=== PATIENT | female | born 1980 | race Caucasian/White ===

== ENCOUNTER 2016-12-16 09:26 | Observation (INO) | payer OTHER ==
[~2016-12-16] VITALS: Ht 180.3 cm; Wt 110.0 kg
[2016-12-16] MEDS ORDERED: LACTATED RINGER'S 1000ML 1,000 ML IV PRN (09:54)
[2016-12-16 10:00] VITALS: Ht 180.3 cm; Wt 110.0 kg
[2016-12-16] MEDS ORDERED: MISOPROSTOLTAB 50 MCG TAB PV ONE (10:00)
[2016-12-16] MEDS ORDERED: MISOPROSTOL 200 MCG TAB ONE ×2 (10:00→21:15)
[2016-12-16 10:15] LABS: HEMATOCRIT 32.5 % (37-47); MEAN CELL VOLUME 81.5 fL (80-100); MEAN CORPUSCULAR HEMOGLOBIN 27.6 pg (25-34); MEAN CORPUSCULAR HGB CONC 33.8 g/dl (32-36); MEAN PLATELET VOLUME 10.2 fL (7.4-10.4); PLATELET COUNT 222 K/uL (130-400); RED BLOOD COUNT 3.99 M/uL (4.2-5.4); WHITE BLOOD COUNT 6.96 K/uL (4.8-10.8)
[2016-12-16] MEDS: LACTATED RINGER'S 1000ML 1,000 ML IV SCH ×2 (10:20→21:57)
[2016-12-16] MEDS ORDERED: IV FLUIDS COMPLETED PRN (10:45)
[2016-12-16] MEDS ORDERED: PRENTAB26 PO (13:50)
[2016-12-16] MEDS ORDERED: VNTHFA/IN INH (13:50)
[2016-12-16] MEDS ORDERED: MISOPROSTOL 200 MCG TAB PO ONE (15:30)
[2016-12-16] MEDS ORDERED: LACTATED RINGER'S 1000ML 1,000 ML IV SCH (16:00)
[2016-12-16] MEDS ORDERED: MISOPROSTOL 200 MCG TAB PO SCH (21:15)
[2016-12-16] MEDS ORDERED: FENTANYL 2MCG/ML ROPIV 1.25MG/ML 100ML BAG EPI ONE (23:16)
[2016-12-16] MEDS ORDERED: EpHEDrine SULFATE INJ 50 MG/ML AMP ONE (23:16)
[2016-12-16] MEDS ORDERED: BUPIVACAINE 0.25% 30 ML VIAL ONE (23:16)
[2016-12-16] MEDS ORDERED: FENTANYL CITRATE INJ 50 MCG/1 ML 2 ML VIAL ONE (23:16)
[2016-12-17] MEDS ORDERED: LACTATED RINGER'S 1000ML 500 ML IV PRN (00:17)
[2016-12-17] MEDS ORDERED: NALOXONE HCL INJ 1 MG in SODIUM CHLORIDE 0.9% 1000ML 1,000 ML IV PRN (00:17)
[2016-12-17] MEDS ORDERED: ONDANSETRON INJ 2 MG/ML 2 ML VIAL IV PRN (00:30)
[2016-12-17] MEDS ORDERED: FENTANYL 2MCG/ML ROPIV 1.25MG/ML 100ML BAG EPI PRN (00:30)
[2016-12-17] MEDS ORDERED: NALBUPHINE HCL INJ 10 MG/ML AMP IV PRN (00:30)
[2016-12-17] MEDS ORDERED: EpHEDrine SULFATE INJ 50 MG/ML AMP IV PRN (00:30)
[2016-12-17] MEDS ORDERED: DiphenhydrAMINE HCL 50 MG/ML VIAL IV PRN (00:30)
[2016-12-17] MEDS ORDERED: NALOXONE HCL INJ 0.4 MG/1 ML VIAL/CARP IV PRN (00:30)
[2016-12-17] MEDS: LACTATED RINGER'S 1000ML 1,000 ML IV SCH (00:41)
[2016-12-17] MEDS ORDERED: OXYTOCIN 30 UNITS/500ML NSS IV ONE (03:21)
--- NOTE | 2016-12-17 03:41 | Discharge Instructions ---
Discharge Instructions Admission Reason for Admission: 24 Week Demise Discharge Discharge Diagnosis / Problem: demise Discharge Goals Goal(s): Improve function Activity Recommendations Activity Limitations: per Instructions/Follow-up section . Instructions / Follow-Up Instructions / Follow-Up . ACTIVITY RECOMMENDATIONS: * Vaginal rest (no tampons, douching, intercourse) until after doctor 's visit. * control as discussed with doctor. * Wear a bra for 24 hours/day for comfort. SPECIAL CARE INSTRUCTIONS: Medications: * vitamins, one tablet daily. Continue taking until prescription is complete. Call you doctor if: * Temperature greater than or equal to 100.4 degrees F or 38.0 degrees C. * Bleeding becomes heavier than the heaviest part of your period - saturating a sanitary pad within an hour. * Passing large clots. * Unrelieved pain. * Bleeding has a foul smelling odor. * Signs and symptoms of phlebitis: leg pain, warm, red or swollen area on leg. incision has increased pain, redness, swelling, presence of any drainage, or if the incision starts to open up. FOLLOW UP VISIT: If appointment is not already scheduled: Please call doctor's office to schedule a follow-up appointment. Current Hospital Diet Patient's current hospital diet: Clear Liquid Diet, Regular OB Diet Discahrge Diet Recommended Diet: Regular Diet Pending Studies Studies pending at discharge: no Medical Emergencies . Who to Call and When: Medical Emergencies: If at any time you feel your situation is an emergency, please call 911 immediately. . Non-Emergent Contact Non-Emergency issues call your: Primary Care Provider . . "Provider Documentation" section prepared by Miguel Cheng. VTE Core Measure Inpt VTE Proph given/why not?: Treatment not indicated
[2016-12-17] MEDS ORDERED: HYDROCORTISONE ACETATE 25 MG SUPP PR PRN (03:45)
[2016-12-17] MEDS ORDERED: IBUPROFEN 600 MG TAB PO PRN (03:45)
[2016-12-17] MEDS ORDERED: OXYCODONE/ACETAMINOPHEN 5-325 TAB PO PRN (03:45)
[2016-12-17] MEDS ORDERED: ACETAMINOPHEN 325 MG TAB PO PRN (03:45)
[2016-12-17] MEDS ORDERED: SUPERCREAM 0.870 % 15GM JAR EXT PRN (03:45)
[2016-12-17] MEDS ORDERED: LANOLIN OINT EXT PRN ×2 (03:45)
[2016-12-17] MEDS ORDERED: BENZOCAINE 20% AER SPR 82.5 GM CAN EXT PRN (03:45)
[2016-12-17] MEDS ORDERED: OXYTOCIN 30 UNITS/500ML NSS IV PRN (03:45)
--- NOTE | 2016-12-17 07:05 | DELIVERY SUMMARY ---
DATE OF OPERATION: 12/16/2016 Rosa presented to labor and delivery on December 16 for induction of labor at 24 weeks since she had a demise. She received 3 total doses of Cytotec and an epidural and just after 3 in the morning, she presented with the baby delivering, membranes intact, breech position in the vagina. Baby was delivered by rupture of membranes and then delivering the baby. Cord was clamped and cut and then placenta was manually removed. I was able to grasp this as it was in the cervix, using manual removal and an empty sponge stick. I felt all the placenta had been removed, IV Pitocin was started, the bleeding was minimal and there was no tearing noted. Sponge and instrument counts were correct. Estimated blood loss was 100 mL. Gross impression of the fetus was that it was macerated. There were no obvious abnormalities. There was a nuchal cord x4 noted. The patient was informed. I attest to the content of the Intraoperative Record and any orders documented therein. Any exceptio ns are noted below.
--- NOTE | 2016-12-17 07:31 | Anesthesia Procedure Note ---
Anesthesia Epidural Removal Nt Date & Time Dec 17, 2016 at 07:30 Vital Signs Pain Intensity: 0.0 Notes Mental Status: alert / awake / arousable, participated in evaluation Nausea / Vomiting: adequately controlled Pain: adequately controlled Airway Patency, RR, SpO2: stable & adequate BP & HR: stable & adequate Hydration State: stable & adequate Neuraxial Anesthesia: was administered, sensory block is resolved Anesthetic Complications: no major complications apparent, pt satisfied with anesthetic care Epidural: removed without complications, with tip intact
[2016-12-17] MEDS ORDERED: DOCUSATE SODIUM 100 MG CAP PO SCH (08:00)
[2016-12-17] MEDS ORDERED: BISACODYL 5 MG TABEC PO SCH (20:00)
[2016-12-18] MEDS ORDERED: BISACODYL 10 MG SUPP PR PRN (07:00)
== END 2016-12-17 13:15 | disposition home or self-care (01) ==
LOC: OBSVTOIN 09:26 → C.LD 09:26 → INTOOBSV 09:26
PROVIDERS: ADMIT Obstetrics & Gynecology; ATTEND Obstetrics & Gynecology
DX: O36.4XX0 Maternal care for intrauterine death, not applicable or unspecified (principal); Z3A.24 24 weeks gestation of pregnancy

== ENCOUNTER 2018-06-15 00:22 | Emergency (ER) | payer SELFPAY ==
[~2018-06-15] VITALS: Ht 181.6 cm; Wt 102.2 kg
[~2018-06-15 00:22] MED LIST: PRENTAB26 PO; VNTHFA/IN INH
[2018-06-15 00:26] VITALS: TEMP 36.7; Ht 181.6 cm; Wt 102.2 kg
[2018-06-15] MEDS ORDERED: SODIUM CHLORIDE 0.9% 1000ML 1,000 ML IV STA (00:31)
[2018-06-15 00:58] VITALS: O2SAT 98
[2018-06-15 00:58] LABS: BASO % 0.2 %; BASO ABS # 0.02 K/uL (0-0.2); EOS % 0.8 %; EOS ABS # 0.08 K/uL (0-0.5); HEMATOCRIT 34.8 % (37-47); HEMOGLOBIN 10.8 g/dL (12.0-16.0); IG# 0.03 K/uL (0.00-0.02); LYMPH % 31.8 %; LYMPH ABS # 3.05 K/uL (1.2-3.4); MEAN CELL VOLUME 79.5 fL (80-100); MEAN CORPUSCULAR HEMOGLOBIN 24.7 pg (25-34); MEAN PLATELET VOLUME 10.8 fL (7.4-10.4); MONO % 7.2 %; MONO ABS # 0.69 K/uL (0.11-0.59); NEUT % 59.7 %; NEUT ABS # 5.71 K/uL (1.4-6.5); PLATELET COUNT 279 K/uL (130-400); RED CELL DISTRIBUTION WIDTH CV 13.3 % (11.5-14.5); RED CELL DISTRIBUTION WIDTH SD 38.5 fL (36.4-46.3); WHITE BLOOD COUNT 9.58 K/uL (4.8-10.8)
[2018-06-15 01:07] LABS: PTT PATIENT 27.1 SECONDS (21.0-31.0)
[2018-06-15 01:30] LABS: ALBUMIN 3.9 gm/dl (3.4-5.0); CALCIUM 8.2 mg/dl (8.5-10.1); CREATININE 1.02 mg/dl (0.60-1.20); POTASSIUM 3.6 mmol/L (3.5-5.1); TOTAL PROTEIN 7.5 gm/dl (6.4-8.2)
--- NOTE | 2018-06-15 03:40 | EMERGENCY ROOM VISIT NOTE ---
History First contact with patient: 00:31 Chief Complaint: VAGINAL BLEEDING Stated Complaint: CRAMPS BLEEDING LOTS OF CLOTS FROM VAGINAL AREA History of Present Illness The patient is a 37 year old female who presents to the Emergency Room with complaints of heavy vaginal bleeding for the past few hours that is now tapering off. It is spontaneous vaginal delivery stillbirth 2 months ago. She [facility]. Patient had 6 total pregnancies and 3 total miscarriages. She has 3 living children. Patient states she has been having intermittent spotting since the miscarriage. Patient states the bleeding got much worse tonight. She did have intercourse this week. Patient complains of left lower suprapubic cramping. 4 out of 10. Nothing makes it better or worse. Patient denies chest pain, dyspnea, fever, chills, nausea, vomiting, diarrhea, urinary symptoms, flank pain, back pain, vaginal odor. Review of Systems An 10 system review of systems was completed with positives and pertinent negatives listed in the HPI. Past Medical/Surgical History Medical Problems: (1) Asthma (2) demise > 22 weeks, delivered, current hospitalization (3) Missed with demise before 20 completed weeks of gestation Family History No Family History of: Blood clots Social History Smoking Status: Current Every Day Smoker Drug Use: none Marital Status: Housing Status: lives with family Occupation Status: employed Current/Historical Medications Scheduled Albuterol Hfa (Ventolin Hfa), 2-4 PUFFS INH Q6H Physical Exam Vital Signs Date Time Temp Pulse Resp B/P (MAP) Pulse Ox O2 Delivery O2 Flow Rate FiO2 06/15/18 02:55 77 94/78 100 Room Air 06/15/18 02:31 80 16 115/69 100 Room Air 06/15/18 01:55 84 06/15/18 01:53 85 18 110/78 100 Room Air 06/15/18 00:58 98 Room Air 06/15/18 00:26 36.7 89 18 119/73 98 Room Air Physical Exam VITALS: Vitals are noted on the nurse's note and reviewed by myself. Vital signs stable. GENERAL: Pleasant female, in no acute distress, nondiaphoretic, well-developed well-nourished. SKIN: The skin was without rashes, erythema, edema, or bruising. There is no tenting of the skin. Capillary reflex less than 2 seconds. HEAD: Normocephalic atraumatic. EARS: External auditory canals clear, tympanic membranes pearly stephen without erythema or effusion bilaterally. EYES: Pupils equal round and reactive to light and accommodation. Conjunctivae without injection, sclerae without icterus. Extraocular movements intact. NOSE: Patent, turbinates without inflammation or discharge. MOUTH: Mucous membranes moist. Pharynx without erythema or exudate. Uvula midline. Airway patent. Tongue does not deviate. NECK: Supple without nuchal rigidity. No lymphadenopathy. No thyromegaly. Cervical spine is nontender. No JVD. HEART: Regular rate and rhythm without murmurs gallops or rubs. LUNGS: Clear to auscultation bilaterally without wheezes, rales or rhonchi. No retractions or accessory muscle use. ABDOMEN: Positive bowel sounds x 4. Normal tympanic percussion. Soft, nontender, without masses or organomegaly. Zaman sign negative. No guarding or rebound tenderness. No CVA tenderness exam: Normal external female genitalia, minimal blood in the vault, minimal blood coming out of the os. Records Management Director present. MUSCULOSKELETAL: No muscle atrophy, erythema, or edema noted. NEURO: Patient was alert and oriented to person place and time. Normal sensation to light and sharp touch. No focal neurological deficits. Medical Decision & Procedures Laboratory Results 06/15/18 00:46 Red Blood Count 4.38, Mean Corpuscular Volume 79.5, Mean Corpuscular Hemoglobin 24.7, Mean Corpuscular Hemoglobin Concent 31.0, Mean Platelet Volume 10.8, Neutrophils (%) (Auto) 59.7, Lymphocytes (%) (Auto) 31.8, Monocytes (%) (Auto) 7.2, Eosinophils (%) (Auto) 0.8, Basophils (%) (Auto) 0.2, Neutrophils # (Auto) 5.71, Lymphocytes # (Auto) 3.05, Monocytes # (Auto) 0.69, Eosinophils # (Auto) 0.08, Basophils # (Auto) 0.02 06/15/18 00:46 Test 06/15/18 00:46 06/15/18 02:49 White Blood Count 9.58 K/uL (4.8-10.8) Red Blood Count 4.38 M/uL (4.2-5.4) Hemoglobin 10.8 g/dL (12.0-16.0) Hematocrit 34.8 % (37-47) Mean Corpuscular Volume 79.5 fL (80-100) Mean Corpuscular Hemoglobin 24.7 pg (25-34) Mean Corpuscular Hemoglobin Concent 31.0 g/dl (32-36) Platelet Count 279 K/uL (130-400) Mean Platelet Volume 10.8 fL (7.4-10.4) Neutrophils (%) (Auto) 59.7 % Lymphocytes (%) (Auto) 31.8 % Monocytes (%) (Auto) 7.2 % Eosinophils (%) (Auto) 0.8 % Basophils (%) (Auto) 0.2 % Neutrophils # (Auto) 5.71 K/uL (1.4-6.5) Lymphocytes # (Auto) 3.05 K/uL (1.2-3.4) Monocytes # (Auto) 0.69 K/uL (0.11-0.59) Eosinophils # (Auto) 0.08 K/uL (0-0.5) Basophils # (Auto) 0.02 K/uL (0-0.2) RDW Standard Deviation 38.5 fL (36.4-46.3) RDW Coefficient of Variation 13.3 % (11.5-14.5) Immature Granulocyte % (Auto) 0.3 % Immature Granulocyte # (Auto) 0.03 K/uL (0.00-0.02) Prothrombin Time 10.5 SECONDS (9.0-12.0) Prothromb Time International Ratio 1.0 (0.9-1.1) Activated Partial Thromboplast Time 27.1 SECONDS (21.0-31.0) Partial Thromboplastin Ratio 1.0 Anion Gap 7.0 mmol/L (3-11) Est Creatinine Clear Calc Drug Dose 101.2 ml/min Estimated GFR () 82.0 Estimated GFR (Non- 70.7 BUN/Creatinine Ratio 14.3 (10-20) Calcium Level 8.2 mg/dl (8.5-10.1) Total Bilirubin 0.2 mg/dl (0.2-1) Aspartate Amino Transf (AST/SGOT) 8 U/L (15-37) Alanine Aminotransferase (ALT/SGPT) 20 U/L (12-78) Alkaline Phosphatase 73 U/L (45-117) Total Protein 7.5 gm/dl (6.4-8.2) Albumin 3.9 gm/dl (3.4-5.0) Globulin 3.6 gm/dl (2.5-4.0) Albumin/Globulin Ratio 1.1 (0.9-2) Human Chorionic Gonadotropin, Qual NEG (NEG) Urine Color YELLOW Urine Appearance ERROR (CLEAR) Urine pH 6.0 (4.5-7.5) Urine Specific Hartline 1.031 (1.000-1.030) Urine Protein NEG (NEG) Urine Glucose (UA) NEG (NEG) Urine Ketones 1+ (NEG) Urine Occult Blood 3+ (NEG) Urine Nitrite NEG (NEG) Urine Bilirubin NEG (NEG) Urine Urobilinogen NEG (NEG) Urine Leukocyte Esterase NEG (NEG) Urine WBC (Auto) 1-5 /hpf (0-5) Urine RBC (Auto) >30 /hpf (0-4) Urine Hyaline Casts (Auto) 1-5 /lpf (0-5) Urine Epithelial Cells (Auto) >30 /lpf (0-5) Urine Bacteria (Auto) NEG (NEG) Medications Administered Medications (Trade) Dose Ordered Sig/Alesha Route Start Time Stop Time Status Last Admin Dose Admin Sodium Chloride 1,000 ml @ 999 mls/hr Q1H1M STAT IV 06/15/18 00:31 06/15/18 01:31 DC 06/15/18 00:31 999 MLS/HR ED Course Prior records/ancillary studies reviewed. Triage Nursing notes reviewed. The patient's history was concerning for vaginal bleeding and abdominal pain. Differential diagnosis: Etiologies such as ectopic , retained products of conception, dysfunction uterine bleeding, bleeding dyscrasia, trauma, infection, as well as others were entertained. Physical examination: As above. Vitals signs revealed stable. ER treatment provided: IV fluids On reassessment the patient felt better. Diagnostic interpretation by me: Mild anemia, normal coagulation studies, and chemistries Negative test Imaging studies: US PELVIC/ENDOVAG: Findings: Bicornuate appearing uterus with complex collection within endometrial canal and into the descending the right groin. This could represent organizing hematoma however retained products of conception cannot be excluded The uterus measures 10.6 x 6.0 x 7.2 cm Left ovary is not visualized. The right ovary is 3.4 x 1.9 x 4.0 cm. Impression Abnormal appearance to the endometrium suggestive of a organizing hematoma versus retained products of conception in the right horn of what appears to be a bicornuate uterus. Radiologist: Phil Conn MD Consultation: A consultation was placed with the travel trailer components assembler physician, Dr Duarte. The case was discussed and diagnostics were reviewed. She states the patient most likely is on her period and recommend iron supplement with vitamin C and outpatient follow -up. This appears to be consistent with vaginal bleeding most likely from her first menstrual cycle after the miscarriage. Prior surgical notes were reviewed from April. Patient has spontaneous vaginal delivery. Patient was advised to take a iron pill with vitamin C daily and light activity no intercourse until cleared by [facility]. She is advised to follow-up in a few days or here in the ER sooner for abdominal pain, fevers, heavy bleeding, worsening signs or symptoms or as needed. Patient did not have acute abdomen on exam. She had minimal bleeding in the vault. Stable vital signs. By the evaluation outlined above emergent etiologies such as bleeding dyscrasia, ectopic , trauma, as well as others were deemed relatively unlikely. The pt informed about the findings as listed above. All questions were answered and pleased with the treatment. Return instructions were outlined and the patient was discharged in stable condition. Referral: The patient was referred to [facility] for follow-up in 2 to 3 days for a recheck of her current condition. Case reviewed with my attending The chart was completed utilizing [employer] Speech voice recognition software. Grammatical errors, random word insertions, pronoun errors, and incomplete sentences are an occassional consequence of this system due to software limitations, ambient noise, and hardware issues. Any formal questions or concerns about the content, text, or information contained within the body of this dictation should be directly addressed to the physician assistant front desk manager for clarification. Medical Decision As above Medication Reconcilliation Current Medication List: was personally reviewed by me Blood Pressure Screening Patient's blood pressure: Normal blood pressure Impression Primary Impression: Abnormal vaginal bleeding Additional Impression: Anemia Departure Information Dispostion Home / Self-Care Condition GOOD Referrals RV. Davis MD (PCP) Patient Instructions My [facility] Additional Instructions Take an iron pill [id number] every day with vitamin C until cleared by OB/ CLINICAL NURSE MANAGER. Rest. Stay well hydrated. No strenuous activity or intercourse until cleared by [facility]. Zofran 4 tablet every 6 hours as needed for nausea and vomiting. Acetaminophen(Tylenol) may be used for fever or pain. Use 1000mg every six hours as needed. Avoid using more than 3000mg in a 24 hour period. Rest and drink plenty of fluids as tolerated. Continue current medications. Return to the ER immediately for worsening or persistent heavy vaginal bleeding , abdominal pain, vomiting, fevers, chest pains, difficulty breathing, worsening of your condition, or as needed. Follow up with your [facility] in 2-3 days for a recheck of your current condition. Problem Qualifiers
[2018-06-15 03:54] VITALS: BP 100/58; PULSE 80; O2SAT 99
--- NOTE | 2018-06-15 07:06 | DIAGNOSTIC IMAGING REPORT ---
PELVIC ULTRASOUND, TRANSABDOMINAL AND TRANSVAGINAL HISTORY: Vaginal bleed/pain COMPARISON: None. FINDINGS: Uterus: 10.6 x 6.0 x 7.2 cm. There is an arcuate appearance to the uterus. Endometrial stripe: Thickened and heterogeneous most pronounced along the right side of the endometrium near the cornua where there is a focal heterogeneous area measuring 3.8 x 3.0 2.1 cm. This demonstrates color flow. Right ovary: Normal in size and demonstrates normal color flow. Left ovary: Obscured by overlying bowel gas. Miscellaneous:No pelvic free fluid. IMPRESSION: Thickened and heterogeneous most pronounced along the right side of the endometrium near the cornua where there is a focal heterogeneous area measuring 3.8 x 3.0 2.1 cm. This demonstrates color flow. Therefore, this is concerning for retained products of conception. Electronically signed by: Baldemar Langston M.D. 06/15/2018 7:05 AM Dictated Date/Time: 06/15/2018 7:01 AM
== END 2018-06-15 03:54 | disposition home or self-care (01) ==
LOC: C.EDB 00:23 → C.EDA 03:54
DX: N93.9 Abnormal uterine and vaginal bleeding, unspecified (principal); D64.9 Anemia, unspecified; J45.909 Unspecified asthma, uncomplicated; F17.200 Nicotine dependence, unspecified, uncomplicated

== ENCOUNTER 2019-04-23 20:44 | Inpatient (IN) ==
[2019-04-23] MEDS ORDERED: SODIUM CHLORIDE 0.9% 1000ML 1,000 ML IV SCH (21:15)
[2019-04-23] MEDS ORDERED: ACETAMINOPHEN 65 ML IV ONE (21:20)
--- NOTE | 2019-04-23 21:32 | Emergency Department Note ---
ED Visit Note I assisted attending Dr. Blakely in the care of this patient. Please see attending's note for details of the visit. Janet Patiño MD Store Sales Consultant PGY-2 . Resident Activity Tracking Resident Involvement: Resident Care Provided Care Provided: Adult ED
[2019-04-23 21:41] LABS: Hematocrit (blood only) 27.9 % (37-47); Hemoglobin 9.1 g/dL (12.0-16.0); Mean Corpuscular Hgb Conc 32.6 g/dL (32-36); Mean Corpuscular Volume 76.4 fL (80-100); Mean Platelet Volume 10.3 fL (7.4-10.4); Platelet Count 238 K/uL (130-400); RDW Coefficient of Variation 13.9 % (11.5-14.5); RDW Standard Deviation 39.7 fL (36.4-46.3); Red Blood Count 3.65 M/uL (4.2-5.4); White Blood Count 13.15 K/uL (4.8-10.8)
[2019-04-23 21:57] LABS: Albumin Level 2.2 gm/dl (3.4-5.0); BUN Creatinine Ratio 3.1 (10-20); Calcium 8.1 mg/dl (8.5-10.1); Creatinine Clr Calc Pharmacy 116.9 ml/min; Est GFR (African American) 89.8; Est GFR (Non-African American) 77.5; Potassium 2.7 mmol/L (3.5-5.1)
[2019-04-23 22:00] LABS: Albumin Globulin Ratio 0.5 (0.9-2); Bilirubin,Total 0.6 mg/dl (0.2-1); Globulin 4.7 gm/dl (2.5-4.0); Total Protein 6.9 gm/dl (6.4-8.2)
[2019-04-23 22:02] LABS: Basophils # (auto) 0.01 K/uL (0-0.2); Basophils % (auto) 0.1 %; Dohle Bodies 1+; Immature Granulocytes # (auto) 0.03 K/uL (0.00-0.02); Immature Granulocytes % (auto) 0.2 %; Lymphocytes # (auto) 0.98 K/uL (1.2-3.4); Lymphocytes % (auto) 7.5 %; Monocytes # (auto) 1.09 K/uL (0.11-0.59); Monocytes % (auto) 8.3 %; Neutrophils # (auto) 11.04 K/uL (1.4-6.5); Neutrophils % (auto) 83.9 %
[2019-04-23] MEDS ORDERED: VANCOMYCIN HCL 1,000 MG/270 ML BAG IV STA (22:08)
[2019-04-23] MEDS ORDERED: VANCOMYCIN CONSULT ACTIVE PRN (22:08)
[2019-04-23] MEDS ORDERED: CEFEPIME 2,000 MG/20 ML VIAL IV STA (22:12)
[2019-04-23] MEDS ORDERED: CEFEPIME CONSULT ACTIVE ONE (22:12)
[2019-04-23 22:34] LABS: Appearance Urine Turbid (Clear); Bacteria Urine Automated 3+ (Negative); Bilirubin Urine Negative (Negative); Blood Urine 1+ (Negative); Color Urine Yellow; Epithelial Cell Urine Auto >30 /lpf (0-5); Glucose Urine UA Negative (Negative); Leukocyte Esterase Urine 3+ (Negative); Nitrite Urine Positive (Negative); Protein Urine 2+ (Negative); Specific Gravity Urine 1.009 (1.000-1.030); Urobilinogen Urine Negative (Negative); WBC Urine Automated >30 /hpf (0-5); pH Urine 5.5 (4.5-7.5)
[2019-04-23 22:45] LABS: Ketones Urine 4+ (Negative)
[2019-04-23 22:51] LABS: RBC Urine Automated 0-4 /hpf (0-4)
[2019-04-23] MEDS: POTASSIUM CHLORIDE / WTR 10 MEQ/100 ML PLCT IV SCH (23:17)
[2019-04-23] MEDS ORDERED: SODIUM CHLORIDE 0.9% 1000ML 1,000 ML IV ONE (23:29)
--- NOTE | 2019-04-23 23:47 | Emergency Department Note ---
Entered by Marii Malave acting as a scribe for Miguel Blakely MD ED Provider Note CHIEF COMPLAINT: Urinary symptoms HISTORY OF PRESENT ILLNESS: The patient is a 38 year old female who presents to the Emergency Room with complaints of worsening urinary symptoms that began 3 days ago prior to arrival. The patient states that she had increased urgency and frequency of urination since this time. The patient states that she then began having bilateral flank pain and a fever. The patient states that she has been taking Tylenol for her symptoms, but states that this has not relieved her symptoms. The patient states that she is 35 weeks . She states that she has a history of UTIs and pyelonephritis. Pt denies LOC, headache, diaphoresis, visual changes, neck pain, chest pain, breathing difficulties, nausea, vomiting, melena, hematochezia, numbness, weakness, lymphadenopathy, rash, or other complaints. REVIEW OF SYSTEMS: See HPI for pertinent positives and negatives. A total of ten systems were reviewed and were otherwise negative. PMHx/PSHx: Pyelonephritis Recurrent UTI SOCIAL HISTORY: Patient lives at home. PHYSICAL EXAM: GENERAL: Awake, alert, well-appearing, in no distress HENT: Normocephalic, atraumatic. Oropharynx unremarkable. EYES: PERRL. Normal conjunctiva. Sclera non-icteric. NECK: Inspection normal. Non-tender. Supple. No nuchal rigidity. FROM. No masses. RESPIRATORY: Clear to auscultation. No wheezes. No rales. Normal respiratory effort. CARDIAC: Tachycardic rate. Normal rhythm. No murmurs. No rubs. Extremities warm and well perfused. Pulses equal. No JVD. GI: Soft. No tenderness to palpation. No rebound or guarding. No masses. Gravid abdomen. RECTAL: Deferred. MUSCULOSKELETAL: Atraumatic. Chest examination reveals no tenderness. The back is symmetrical on inspection without obvious abnormality. Bilateral CVA tenderness. No joint edema. LOWER EXTREMITIES: Calves are equal size bilaterally and non-tender. No edema. No discoloration. NEURO: Normal sensorium. No sensory or motor deficits noted. SKIN: No rash or jaundice noted. EMERGENCY DEPARTMENT COURSE: 2051: The patient was seen and evaluated by the resident Janet Patiño. 2213: Past medical records reviewed. The patient was evaluated in room A10, and a complete history and physical examination were performed. 2238: The resident discussed the case with Dr. Martins-MANAGER SAS who states that he will further evaluate the patient in Labor and Delivery. 2330: Patient was reevaluated. She is resting comfortably. She is feeling better. Her blood pressure is mildly low. She is receiving IV fluids. MEDICAL DECISION MAKING: Prior records/ancillary studies reviewed. Patient has had prior issues with enterococcus UTIs. They have been pansensitive except for one that was intermediate to Cipro. Triage Nursing notes reviewed and agree them. The patient's history was concerning for flank and abdominal pain. Differential diagnosis: Etiologies such as UTI, pyelonephritis, comp location of , renal colic, appendicitis, diverticulitis, mesenteric ischemia, aortic pathology, infections, inflammatory bowel disease, PUD, biliary pathology, as well as others were entertained. Physical examination findings: As above. The patient was febrile. ER treatment provided: IV Tylenol IV saline hydration IV potassium IV vancomycin and IV cefepime after consultation with pharmacy On reassessment the patient felt better. Diagnostic interpretation by me: The labs revealed a mild leukocytosis on CBC. Urinalysis revealed findings very concerning for a UTI. Imaging studies: and retroperitoneal ultrasound imaging performed. No severe hydronephrosis noted. No gross abnormalities noted with the either. The patient has a UTI and flank pain. This is concerning for pyelonephritis. She has a history of enterococcus UTI as well as others. She was treated with IV cefepime and IV vancomycin since she has a lactate, elevated heart rate, and fever. The patient also has a mild leukocytosis however this is difficult to interpret given her stage of as it may be physiologic. Further management will be necessary in the hospital under the care of MANAGER SAS. The patient was seen and examined with Dr. Patiño, resident physician. We d iscussed the case and treatments ordered, reviewed the results, and determine the disposition. I have been directly involved with the management and disposition as well as independently evaluated the patient as documented in this note. Consultation: A consultation was placed with MANAGER SAS on-call, Dr. Martins. The patient was accepted for further treatment on labor and delivery. IMPRESSION: Pyelonephritis UTI without hematuria PLAN: Admit The scribe's documentation has been prepared under my direction and personally reviewed by me in its entirety. I confirm that the note above accurately reflects all work, treatment, procedures, and medical decision making performed by me. Impression & Plan Pyelonephritis, UTI (urinary tract infection) Past Med/Surg History Medical History H/O pyelonephritis (Resolved) Recurrent UTI (Chronic) Social History Preferred Language: Tristanian Feels Safe at Home: Yes Smoking Status: Former smoker Results & Data Vital Signs Vital Signs - 24 hr 04/23/19 20:48 04/23/19 22:07 04/23/19 22:37 Temperature 38.1 C H 37.4 C Temperature Source Oral Oral Sepsis Recent Fever Within 48 Hours Yes Sepsis New/Unexplained Change in Mental Status No Sepsis Action Taken by Nursing No Action Required Pulse Rate 135 H Pulse Rate [Apical] 132 H Pulse Rhythm Regular Pulse Strength Normal Respiratory Rate 20 20 Respiratory Effort / Characteristics Non-Labored Spontaneous Respiratory Depth Normal Respiratory Pattern Regular Blood Pressure 130/80 Blood Pressure [Left Arm] 102/63 Blood Pressure Mean 96 Blood Pressure Mean [Left Arm] 76 Blood Pressure Position Sitting Blood Pressure Position [Left Arm] Pulse Oximetry 99 100 Oxygen Delivery Method Room Air Room Air 04/23/19 23:19 Temperature Temperature Source Sepsis Recent Fever Within 48 Hours Sepsis New/Unexplained Change in Mental Status Sepsis Action Taken by Nursing Pulse Rate Pulse Rate [Apical] 100 H Pulse Rhythm Pulse Strength Respiratory Rate 18 Respiratory Effort / Characteristics Respiratory Depth Respiratory Pattern Blood Pressure Blood Pressure [Left Arm] 95/67 L Blood Pressure Mean Blood Pressure Mean [Left Arm] 76 Blood Pressure Position Blood Pressure Position [Left Arm] Sitting Pulse Oximetry 96 Oxygen Delivery Method Room Air Home Medications Current Medication List: was personally reviewed by me Laboratory Data Attestation: I reviewed the patient's lab results. Result diagrams: 04/23/19 21:21 04/23/19 21:21 Lab Results 04/23/19 04/23/19 04/23/19 Range/Units 21:21 21:21 Unknown WBC 13.15 H (4.8-10.8) K/uL RBC 3.65 L (4.2-5.4) M/uL Hgb 9.1 L (12.0-16.0) g/dL Hct 27.9 L (37-47) % MCV 76.4 L (80-100) fL MCH 24.9 L (25-34) pg MCHC 32.6 (32-36) g/dL RDW Std Deviation 39.7 (36.4-46.3) fL RDW Coeff of Tj 13.9 (11.5-14.5) % Plt Count 238 (130-400) K/uL MPV 10.3 (7.4-10.4) fL Immature Gran % (Auto) 0.2 % Neut % (Auto) 83.9 % Lymph % (Auto) 7.5 % [place] % (Auto) 8.3 % Eos % (Auto) 0.0 % Baso % (Auto) 0.1 % Immature Gran # (Auto) 0.03 H (0.00-0.02) K/uL Neut # (Auto) 11.04 H (1.4-6.5) K/uL Lymph # (Auto) 0.98 L (1.2-3.4) K/uL [place] # (Auto) 1.09 H (0.11-0.59) K/uL Eos # (Auto) 0.00 (0-0.5) K/uL Baso # (Auto) 0.01 (0-0.2) K/uL Dohle Bodies 1+ Sodium 136 (136-145) mmol/L Potassium 2.7 L (3.5-5.1) mmol/L Chloride 102 (98-107) mmol/L Carbon Dioxide 19 L (21-32) mmol/L Anion Gap 14.0 H (3-11) BUN 3 L (7-18) mg/dl Creatinine 0.94 (0.6-1.2) mg/dl Est Cr Clr Drug Dosing 116.9 ml/min Est GFR ( Amer) 89.8 Est GFR (Non-Af Amer) 77.5 BUN/Creatinine Ratio 3.1 L (10-20) Glucose 130 H (70-99) mg/dl Calcium 8.1 L (8.5-10.1) mg/dl Total Bilirubin 0.6 (0.2-1) mg/dl AST 14 L (15-37) U/L ALT 12 (12-78) U/L Alkaline Phosphatase 149 H (45-117) U/L Total Protein 6.9 (6.4-8.2) gm/dl Albumin 2.2 L (3.4-5.0) gm/dl Globulin 4.7 H (2.5-4.0) gm/dl Albumin/Globulin Ratio 0.5 L (0.9-2) Lipase 61 L (73-393) U/L Urine Color Yellow Urine Appearance Turbid A (Clear) Urine pH 5.5 (4.5-7.5) Ur Specific [place] 1.009 (1.000-1.030) Urine Protein 2+ H (Negative) Urine Glucose (UA) Negative (Negative) Urine Ketones 4+ H (Negative) Urine Blood 1+ H (Negative) Urine Nitrite Positive A (Negative) Urine Bilirubin Negative (Negative) Urine Urobilinogen Negative (Negative) Ur Leukocyte Esterase 3+ H (Negative) Urine WBC (Auto) >30 H (0-5) /hpf Urine RBC (Auto) 0-4 (0-4) /hpf U Hyaline Cast (Auto) 1-5 (0-5) /lpf U Epithel Cells (Auto) >30 H (0-5) /lpf Urine Bacteria (Auto) 3+ H (Negative) Granular Casts 1-5 H (0) /lpf Waxy Casts 1-5 H (0) /lpf Urine Yeast Not Reportable Administered Medications Vancomycin HCl (Vancomycin Hcl) 1,000 mg in 270 mls @ 125 mls/hr IV NOW STA; Protocol Stop: 04/24/19 00:17 Last Admin: 04/23/19 23:17 Dose: 125 mls/hr Documented by: [id number] Potassium Chloride (K Farrukh / Wtr) 10 meq in 100 mls @ 100 mls/hr IV Q1H [facility] Stop: 04/24/19 00:14 Last Admin: 04/23/19 23:17 Dose: 100 mls/hr Documented by: [id number] Miscellaneous Information (Consult) 1 ea N/A UD PRN PRN Reason: Consult Stop: 05/23/19 22:07 Last Admin: 04/23/19 22:38 Dose: 1 ea Documented by: [id number] Discontinued Medications Sodium Chloride (Nss 1000ml) 1,000 mls @ 999 mls/hr IV .Q1H1M [facility] Stop: 04/23/19 22:15 Last Admin: 04/23/19 21:59 Dose: 999 mls/hr Documented by: [id number] Acetaminophen (Ofirmev) 65 mls @ 200 mls/hr IV NOW ONE Stop: 04/23/19 21:39 Last Infusion: 04/23/19 22:31 Dose: 0 mls/hr Documented by: [id number] Admin: 04/23/19 21:59 Dose: 200 mls/hr Documented by: [id number] Cefepime HCl (Maxipime) 2,000 mg in 20 mls @ 5 mls/min IV NOW STA; Protocol Stop: 04/23/19 22:15 Last Admin: 04/23/19 22:30 Dose: 5 mls/min Documented by: [id number] Miscellaneous Information (Cefepime Consult Active) 1 ea N/A NOW ONE Stop: 04/23/19 22:13 Last Admin: 04/23/19 22:38 Dose: 1 ea Documented by: [id number] Imaging Data Radiologist's Impression: Radiology results as stated below per my review and the radiologist's interpretation: US OB LIMITED: Single live intrauterine . Fetus is cephalic in position. heart rate 136 bpm. Placenta is anterior and heterogeneous in echotexture. Right and left adnexa appear within normal limits. Radiologist: Espinoza Olivares DO Study ready at 23:28 and initial results transmitted at 23:30. US RENAL: Right kidney measures 15 cm in length. Mild dilation of the right renal pelvis and proximal ureter. No shadowing nephrolithiasis. Left kidney measures 14.5 cm in length. No shadowing nephrolithiasis or hydronephrosis. The urinary bladder is decompressed. Ureteral jets not detected. Radiologist: Espinoza Olivares DO Study ready at 23:18 and initial results transmitted at 23: 26. Blood Pressure Blood Pressure Findings: Low blood pressure Additional Comments: Further management by OB Discharge Plan Visit Data Chief Complaint: Flank Pain Stated Complaint: KIDNEY INF ED Provider: Miguel Blakely ED Midlevel Provider: Janet Patiño Discharge Problem: Pyelonephritis, UTI (urinary tract infection) Patient Disposition: Admitted As Inpatient Forms Stand Alone Forms: [facility] [employer] Prescriptions Prescriptions: No Action PNV cmb#95-ferrous fumarate-FA [] 28 mg iron- 800 mcg Tablet 1 tab PO DAILY RF: 0 Referrals Referrals: PCP,NO [Primary Care Provider] - Discharge Problem: UTI (urinary tract infection) Qualifiers: Urinary tract infection type: site unspecified Hematuria presence: without hematuria Qualified Code(s): N39.0 - Urinary tract infection, site not specified The scribe's documentation has been prepared under my direction and personally reviewed by me in its entirety. I confirm that the note above accurately reflects all work, treatment, procedures, and medical decision making performed by me.
[2019-04-23] MEDS ORDERED: OXYTOCIN 30 UNITS/500 ML BAG IV PRN (23:57)
[2019-04-24] MEDS: POTASSIUM CHLORIDE / WTR 10 MEQ/100 ML PLCT IV SCH (00:27)
--- NOTE | 2019-04-24 00:54 | History & Physical Report ---
Date of Service April 24, 2019 Assessment & Plan (1) Pyelonephritis: -Clinical presentation consistent with pyelonephritis -Patient with elevated white count and low-grade fever. -We will treat aggressively with IV antibiotics -Patient given a dose of vancomycin in the emergency room which will be discontinued -Patient started on cefepime 1 g IV every 8 hours -We will use this as primary antibiotic, but may need to adjust depending upon culture results and clinical response -Nonstress test reactive, no uterine irritability appreciated -Hypokalemia was noted in the emergency room, patient has received potassium supplements -We will recheck potassium in 6 hours History of Present Illness Chief Complaint: Urinary frequency and back pain Primary Care Provider: NO PCP The patient is a 38-year-old 7 para 3-1-2-3, with an EDC of 31 May by second trimester ultrasound, at 34+ weeks gestational age, who was admitted from the emergency room with probable pyelonephritis. The patient began to develop urinary symptoms approximately 72 hours ago with urinary frequency. She then began to develop back pain and fever and chills. The symptoms became bad enough that she went to the emergency room late in the evening on 23 April where the diagnosis was made and the patient was admitted. The patient has a long history of frequent urinary tract infections as well as episodes of pyelonephritis. She was treated in late February for a UTI with enterococcus. Her test of cure urine at the end of March was contaminated. The patient does have a history of penicillin allergy producing hives. The patient was not seen with this until approximately 17 weeks at which time a dating ultrasound was performed. Of note is that the patient's last 2 pregnancies were both demise is the 1st-20 4 weeks and the second at 16 weeks gestational age. This had been unremarkable until this admission for pyelonephritis. Allergies Allergy/AdvReac Type Severity Reaction Status Date / Time Penicillins Allergy Mild HIVES Verified 04/23/19 23:42 Home Medications Home Medications Medication Instructions Recorded Confirmed Type PNV cmb#95-ferrous fumarate-FA 1 tab PO DAILY 04/23/19 04/23/19 History [] Patient History Medical History H/O pyelonephritis (Resolved) Recurrent UTI (Chronic) Social History Preferred Language: Romanian Feels Safe at Home: Yes Smoking Status: Former smoker Physical Exam Constitutional: WD/WN, vitals as above Respiratory: Auscultation: lungs clear to auscultation bilaterally Cardiovascular: RRR, no murmur, no edema Extremities: no calf tenderness Gastrointestinal (Abdomen): Gravid, positive heart tones, no palpable contractions, bilateral CVA tenderness right greater than left Genitourinary: Cervix: Long thick and closed Results & Data Vital Signs (Past 12 Hours) Vital Signs Temp Pulse Pulse Resp BP BP Pulse Ox 04/23/19 23:45 94 H 18 113/61 98 04/23/19 23:19 100 H 18 95/67 L 96 04/23/19 22:37 37.4 C 04/23/19 22:07 132 H 20 102/63 100 04/23/19 20:48 38.1 C H 135 H 20 130/80 99
[2019-04-24] MEDS: LACTATED RINGER'S 1,000 ML IV PRN ×2 (01:47→07:35)
[2019-04-24] MEDS: CEFEPIME 1,000 MG in SYRINGE 0 ML IV SCH ×3 (06:12→21:31)
[2019-04-24] MEDS ORDERED: CALCIUM CARBONATE 500 MG CHEWABLE TAB PO PRN (06:21)
--- NOTE | 2019-04-24 06:32 | Obstetrical Progress Note ---
Date of Service April 24, 2019 Assessment & Plan (1) Pyelonephritis: Rosa is a 38-year-old who presented at 34 weeks with increased urinary frequency, back pain, fever, chills, and general feeling of unwellness who is been admitted for pyelonephritis. Pyelonephritis in the setting of �Urine overnight continues to be cloudy, tea colored, and malodorous �Retroperitoneal and OB ultrasound pending. Suspicious for right pyelonephritis. �On admit leukocytosis to 13.15, febrile, infected appearing UA �Urine culture pending - Received 1 dose of vancomycin in the ED. Currently on cefepime 1 g every 8 hours. Tolerating well despite penicillin hives allergy. -Added Tylenol 500 mg every 4 hours as needed for fever/pain �Added Tums for heartburn/reflux �LR 125-200 cc/hour and cross taper as oral intake improves �Continue to follow, CBC daily, narrow antibiotics based on sensitivities when available. Supervising Physician Co-Signing Physician Notes Resident Physician Supervision Note: I was present with Dr. Forbes during the history and exam. I discussed the case with the resident and agree with the findings and plan as documented in the note. Any exceptions or clarifications are listed here: Patient afebrile but still with right flank pain. Labs pending from this AM, continue present plan Documented By: Ge Martins Jr, MD, FACOG Subjective Rosa is a 38-year-old who presented at 34 weeks with increased urinary frequency, back pain, fever, chills, and general feeling of unwellness. Today she reports that she continues to have bad heartburn which she is experienced with this . She was very chilly last night, and did not feel warm but endorses chills. Denies night sweats. Has voided 1 L overnight, denies burning with urination. She continues to have back and flank pain predominantly on the right side. No abdominal tenderness. No vaginal bleeding, no new vaginal discharge. She is still feeling good movement. No contractions. She is not having difficulty breathing, shortness of breath, chest pain, or chest pressure. She think she will be able to eat this morning if she takes some Tums for her heartburn. No other questions or concerns at time of visit. Review of Systems Review of Systems: Denies fever, sweats. Endorses chills. Denies shortness of breath, difficulty breathing, chest pain, palpitations, chest pressure. Denies dysuria, endorses urinary frequency. Denies headache. Endorses back/flank pain as noted in HPI Physical Exam Physical Exam: General: A&Ox3. NAD. Cooperative. HEENT: Atraumatic, normocephalic. Pulm: CTAB A&P. -wheezes, -rales, -rhonchi. Symmetrical chest rise. No increase work of breathing. No respiratory distress. Cardiac: RRR, -mrg. Radial pulses intact and symmetrical. Abdominal: Nontender, distention consistent with 34 weeks . BS present. No right upper quadrant tenderness. Back: CVA tenderness on the right side. No paraspinal tenderness. Results & Data Vital Signs (Past 12 Hours) Vital Signs Temp Pulse Pulse Pulse Pulse Resp BP 04/24/19 04:45 36.3 C L 72 20 04/24/19 03:20 35.8 C L 76 16 04/24/19 00:10 36.4 C L 88 20 04/23/19 23:45 94 H 18 113/61 04/23/19 23:19 100 H 18 04/23/19 22:37 37.4 C 04/23/19 22:07 132 H 20 04/23/19 20:48 38.1 C H 135 H 20 130/80 BP Pulse Ox 04/24/19 04:45 132/73 100 04/24/19 03:20 102/68 97 04/24/19 00:10 107/69 97 04/23/19 23:45 98 04/23/19 23:19 95/67 L 96 04/23/19 22:37 04/23/19 22:07 102/63 100 04/23/19 20:48 99 Resident Activity Tracking Resident Involvement: Resident Care Provided Care Provided: Adult Hospital Medicine
[2019-04-24] MEDS ORDERED: ONDANSETRON INJ 2 MG/ML 2 ML VIAL IV PRN (06:40)
--- NOTE | 2019-04-24 06:46 | Ultrasound Report ---
US retroperitoneal limited CLINICAL HISTORY: 38 years-old Female presenting with UTI, . TECHNIQUE: Real-time grayscale and limited color Doppler ultrasound imaging of the kidneys and bladde r was performed. COMPARISON: None. FINDINGS: Right kidney: Normal echogenicity of renal parenchyma. Right kidney measures 15.0 cm. Mild pelviectas is. The proximal right ureter is mildly dilated with an AP dimension of 12 mm. No gross evidence of u rothelial thickening. No convincing evidence of calculus or mass. Left kidney: Normal echogenicity of renal parenchyma. Left kidney measures 14.5 cm. No hydronephrosis . No convincing evidence of calculus or mass. Bladder: Decompressed limiting evaluation. Bilateral ureteral jets not visualized. Other: None. IMPRESSION: 1. Mild right pelviectasis and mild dilatation of the right ureter. This is is likely related to pre gnancy. 2. No sonographic evidence of upper tract involvement of infection allowing for the sensitivity of u ltrasound. Electronically signed by: Gerard Hancock M.D. 04/24/2019 6:44 AM
--- NOTE | 2019-04-24 06:49 | Ultrasound Report ---
US OB limited HISTORY: 38 years-old Female flank pain, 35 wks. Limited us please acute bilateral flank pain with third trimester gestation COMPARISON: Pelvic ultrasound 06/15/2018 TECHNIQUE: Multiple real-time sonographic images of the deep pelvic structures were obtained transabd ominally assessing grayscale appearance, color Doppler flow and M-mode analysis FINDINGS: Single living intrauterine gestation is noted in cephalic positioning, heart rate measured at 1 36 bpm. Anterior positioning of the placenta which appears to be slightly heterogeneous. Femur length is 6.6 cm, 33 weeks 4 days. Cervix is not diagnostically visualized. Ovaries are also not diagnostic ally visualized. Adnexa appear unremarkable. IMPRESSION: Single living intrauterine gestation, estimated gestational age of 33 weeks and 4 days. The above report was generated using voice recognition software. It may contain grammatical, syntax o r spelling errors. Electronically signed by: Marko Manzano M.D. 04/24/2019 6:48 AM
[2019-04-24] MEDS: ACETAMINOPHEN 500 MG TAB PO PRN (07:00)
[2019-04-24 07:29] LABS: Hematocrit (blood only) 27.7 % (37-47); Mean Corpuscular Hgb Conc 32.5 g/dL (32-36); Mean Corpuscular Volume 76.5 fL (80-100); Mean Platelet Volume 10.1 fL (7.4-10.4); Platelet Count 210 K/uL (130-400); RDW Standard Deviation 40.2 fL (36.4-46.3); Red Blood Count 3.62 M/uL (4.2-5.4); White Blood Count 11.56 K/uL (4.8-10.8)
[2019-04-24 08:06] LABS: BUN Creatinine Ratio 4.9 (10-20); Est GFR (Non-African American) 91.4; Potassium 3.3 mmol/L (3.5-5.1)
[2019-04-24] MEDS: FERROUS SULFATE 325 MG TAB PO SCH ×2 (08:43→17:10)
[2019-04-24] MEDS: PRENATAL VITAMIN 1 TAB PO SCH (08:43)
--- NOTE | 2019-04-24 10:14 | Obstetrical Progress Note ---
Date of Service April 24, 2019 Subjective spoke with pharmacist. Cefepime good choice for gram neg bacilli and will wait for final cultures Results & Data Vital Signs (Past 12 Hours) Vital Signs Temp Pulse Pulse Pulse Pulse Resp BP 04/24/19 07:25 37.3 C 78 16 04/24/19 06:40 38.5 C H 04/24/19 04:45 36.3 C L 72 20 04/24/19 03:20 35.8 C L 76 16 04/24/19 00:10 36.4 C L 88 20 04/23/19 23:45 94 H 18 113/61 04/23/19 23:19 100 H 18 04/23/19 22:37 37.4 C BP Pulse Ox 04/24/19 07:25 86/61 L 98 04/24/19 06:40 04/24/19 04:45 132/73 100 04/24/19 03:20 102/68 97 04/24/19 00:10 107/69 97 04/23/19 23:45 98 04/23/19 23:19 95/67 L 96 04/23/19 22:37
[2019-04-25] MEDS: CEFEPIME 1,000 MG in SYRINGE 0 ML IV SCH (06:01)
--- NOTE | 2019-04-25 06:51 | Obstetrical Progress Note ---
Date of Service April 25, 2019 Assessment & Plan (1) Pyelonephritis: Rosa is a 38-year-old who presented at 34 weeks with increased urinary frequency, back pain, fever, chills, and general feeling of unwellness who is been admitted for pyelonephritis. Pyelonephritis in the setting of �Urine overnight continues to be cloudy, tea colored, and malodorous �Retroperitoneal shows mild right pelviectasis and mild dilatation of the right ureter. �On admit leukocytosis to 13.15, febrile, infected appearing UA. Leukocytosis downtrending. �Urine culture pending with GNR, speciation/sensitivities pending. - Received 1 dose of vancomycin in the ED. Currently on cefepime 1 g every 8 hours. Tolerating well despite penicillin hives allergy. -Added Tylenol 500 mg every 4 hours as needed for fever/pain � Tums for heartburn/reflux � Oral intake improved, nausea improved, d/roque IVFM �Continue to follow, CBC daily, narrow antibiotics based on sensitivities when available. Supervising Physician Co-Signing Physician Notes Resident Physician Supervision Note: I interviewed and examined the patient. Discussed with [Sammy] and agree with findings and plan as documented in the note. Any exceptions or clarifications are listed here: will await final cultures Documented By: Deena Cheng MD, FACOG Subjective Rosa reports she feels improved today. No fevers/chills although she endorses night sweats last night. She feels her nausea and heartburn are greatly improved today. She continues to have right and left lower flank pain, although she notes the R sided pain is slowly improving. She is not having pain with urinations. No questions or concerns at time of visit. Review of Systems Review of Systems: Denies fever, sweats. Endorses chills. Denies shortness of breath, difficulty breathing, chest pain, palpitations, nkechi st pressure. Denies dysuria, endorses urinary frequency. Denies headache. Endorses bilateral back/flank pain as noted in HPI Physical Exam Physical Exam: General: A&Ox3. NAD. Cooperative. Skin warm, moist. HEENT: Atraumatic, normocephalic. Pulm: CTAB A&P. -wheezes, -rales, -rhonchi. Symmetrical chest rise. No increase work of breathing. No respiratory distress. Cardiac: RRR, -mrg. Radial pulses intact and symmetrical. Abdominal: Nontender, distension consistent with , soft. BS present. R sided CVA tenderness. Extremity: No mottling, no calf warmth/erythema/asymmetry, Homans negative. Results & Data Vital Signs (Past 12 Hours) Vital Signs Temp Pulse Pulse Resp BP Pulse Ox 04/25/19 03:45 36.7 C 93 H 18 106/66 04/24/19 23:30 37.1 C 102 H 20 109/66 97 04/24/19 19:21 37.6 C H 106 H 20 109/70 98 Resident Activity Tracking Resident Involvement: Resident Care Provided Care Provided: Adult Hospital Medicine
[2019-04-25 07:40] LABS: Basophils # (auto) 0.02 K/uL (0-0.2); Basophils % (auto) 0.2 %; Eosinophils # (auto) 0.03 K/uL (0-0.5); Eosinophils % (auto) 0.3 %; Hematocrit (blood only) 26.8 % (37-47); Hemoglobin 8.7 g/dL (12.0-16.0); Immature Granulocytes # (auto) 0.07 K/uL (0.00-0.02); Immature Granulocytes % (auto) 0.7 %; Lymphocytes # (auto) 1.39 K/uL (1.2-3.4); Lymphocytes % (auto) 13.4 %; Mean Corpuscular Hgb Conc 32.5 g/dL (32-36); Mean Corpuscular Volume 76.1 fL (80-100); Mean Platelet Volume 9.9 fL (7.4-10.4); Monocytes # (auto) 1.14 K/uL (0.11-0.59); Neutrophils # (auto) 7.74 K/uL (1.4-6.5); Neutrophils % (auto) 74.4 %; Platelet Count 247 K/uL (130-400); RDW Standard Deviation 39.2 fL (36.4-46.3); Red Blood Count 3.52 M/uL (4.2-5.4); White Blood Count 10.39 K/uL (4.8-10.8)
[2019-04-25] MEDS: FERROUS SULFATE 325 MG TAB PO SCH ×2 (08:55→17:07)
[2019-04-25] MEDS: PRENATAL VITAMIN 1 TAB PO SCH (08:55)
[2019-04-25] MEDS: CEFAZOLIN 1000MG 1,000 MG/7.5 ML SYR IV SCH ×2 (14:08→21:42)
[2019-04-25] MEDS: ACETAMINOPHEN 500 MG TAB PO PRN (20:35)
[2019-04-26] MEDS: CEFAZOLIN 1000MG 1,000 MG/7.5 ML SYR IV SCH (06:20)
--- NOTE | 2019-04-26 06:44 | Obstetrical Progress Note ---
Date of Service April 26, 2019 Assessment & Plan (1) Pyelonephritis: Rosa is a 38-year-old who presented at 34 weeks with increased urinary frequency, back pain, fever, chills, and general feeling of unwellness who is been admitted for pyelonephritis. Pyelonephritis in the setting of �Retroperitoneal US shows mild right pelviectasis and mild dilatation of the right ureter. �On admit leukocytosis to 13.15, febrile, infected appearing UA. Leukocytosis resolved yesterday - Pansensitive E. coli on UC - Received 1 dose of vancomycin in the ED. Narrowed from cefepime to cefazolin yesterday, tolerating well - Tylenol 500 mg every 4 hours as needed for fever/pain � Tums for heartburn/reflux - Oral intake improved yesterday until her filling fell out, now has pain with cold liquids but is doing well from an infectious/nausea standpoint. - Anticipate conversion to Keflex when appropriate for PO. Clinically improving today. Supervising Physician Co-Signing Physician Notes Patient evaluated and agree with the above findings and plan Subjective Rosa reports she feels improved overall today, but had a filling fall out yesterday which makes drinking warm/cold liquids extremely painful. Otherwise doing well, denies fevers/chills/sweats, no nausea/vomiting and was eating well. Voiding without difficulty, no dysuria or malodorous urine. No abdominal pain. No vaginal bleeding/discharge and continues to feel good movement. No back pain at rest, although is still sensitive to tap on the R flank. Feels that overall she is doing well. No questions or concerns this morning. Review of Systems Review of Systems: Denies fever, sweats. Endorses chills. Denies shortness of breath, difficulty breathing, chest pain, palpitations, chest pressure. Denies dysuria, endorses urinary frequency. Denies malodorous urine. No nausea/vomiting/diarrhea/constipation/abdominal pain. Denies headache. Endorses bilateral back/flank pain as noted in HPI Physical Exam Physical Exam: General: A&Ox3. NAD. Cooperative. Skin warm, dry HEENT: Atraumatic, normocephalic. Pulm: CTAB A&P. -wheezes, -rales, -rhonchi. Symmetrical chest rise. No increase work of breathing. No respiratory distress. Cardiac: RRR, -mrg. Radial pulses intact and symmetrical. Abdominal: Nontender, distension consistent with , soft. BS present. R sided CVA tenderness improved from prior. No L sided tenderness or CVA tenderness. Extremity: No mottling, no calf warmth/erythema/asymmetry, Homans negative. Results & Data Vital Signs (Past 12 Hours) Vital Signs Temp Pulse Resp BP Pulse Ox 04/26/19 00:40 36.4 C L 85 14 110/72 97 04/25/19 19:15 36.6 C 96 H 18 112/74 98 Resident Activity Tracking Resident Involvement: Resident Care Provided Care Provided: Adult Hospital Medicine
[2019-04-26] MEDS: PRENATAL VITAMIN 1 TAB PO SCH (08:49)
[2019-04-26] MEDS: FERROUS SULFATE 325 MG TAB PO SCH (08:49)
[2019-04-26] MEDS ORDERED: cephALEXin 500 MG CAP PO SCH (09:00)
[2019-04-26 09:03] LABS: Basophils # (auto) 0.01 K/uL (0-0.2); Basophils % (auto) 0.1 %; Eosinophils # (auto) 0.09 K/uL (0-0.5); Eosinophils % (auto) 1.3 %; Hemoglobin 8.3 g/dL (12.0-16.0); Immature Granulocytes # (auto) 0.06 K/uL (0.00-0.02); Immature Granulocytes % (auto) 0.8 %; Lymphocytes % (auto) 16.9 %; Mean Corpuscular Hgb Conc 33.2 g/dL (32-36); Mean Corpuscular Volume 76.2 fL (80-100); Mean Platelet Volume 9.6 fL (7.4-10.4); Monocytes # (auto) 0.57 K/uL (0.11-0.59); Neutrophils # (auto) 5.19 K/uL (1.4-6.5); Neutrophils % (auto) 72.9 %; Platelet Count 245 K/uL (130-400); RDW Coefficient of Variation 13.9 % (11.5-14.5); RDW Standard Deviation 39.7 fL (36.4-46.3); Red Blood Count 3.28 M/uL (4.2-5.4); White Blood Count 7.12 K/uL (4.8-10.8)
--- NOTE | 2019-04-26 11:10 | Obstetrical Progress Note ---
Date of Service April 26, 2019 Assessment & Plan (1) Pyelonephritis: pt is 35wks ega with h/o pyelo. nst reviewed and reactive and reviewed baseline which does wander from 110-125 with mod variability. categ 1. she notes good movement and aware of [facility] bid--she denies any ob complaints or concerns. we arranged apts on tuesday with nst. she signed hiv consent given employee exposure. Subjective ctsp by nursing to evaluate nst and to sign hiv consent as employee suffered needle stick after drawing pt blood. Results & Data Vital Signs (Past 12 Hours) Vital Signs Temp Pulse Pulse Resp BP Pulse Ox 04/26/19 10:55 36.4 C L 76 18 113/75 99 04/26/19 07:45 36.4 C L 76 18 113/75 99 04/26/19 00:40 36.4 C L 85 14 110/72 97
--- NOTE | 2019-04-27 01:16 | Discharge Summary ---
ADMITTING DIAGNOSIS: Pyelonephritis at 34 weeks gestational age. DISCHARGE DIAGNOSES: 1. Pyelonephritis at 34 weeks gestational age. 2. Anemia in . DISCHARGE MEDICATIONS: 1. Keflex 500 mg p.o. t.i.d. for 1 week. 2. Macrobid 100 mg p.o. at bedtime daily. ADMISSION HISTORY: The patient is a 38-year-old 7, para 3-1-2-3 with an EDC of 05/31/2019 by second trimester ultrasound who was admitted at 34+ weeks of gestational age from the Emergency Room with probable pyelonephritis. The patient began to develop urinary symptoms approximately 72 hours prior to admission. She initially developed urinary frequency, then back pain with fever and chills. The patient's symptoms became bad enough that she went to the Emergency Room on 04/23/2019 where she was diagnosed and was admitted. The patient has a long history of frequent urinary tract infections as well as episodes of pyelonephritis. She was treated in late February for a UTI with enterococcus. Her test of cure at the end of March was contaminated. The patient does have a history of penicillin allergy producing hives. The patient was not seen with this until approximately 17 weeks gestational age when a dating ultrasound was performed. The patient's last 2 pregnancies were both demises, the first at 24 weeks gestational age and the second at 16 weeks gestational age. ADMISSION PHYSICAL EXAMINATION: GENERAL: Showed a gravid female in no acute distress. VITAL SIGNS: Blood pressure 113/61 and a temp of 37.4. HEENT: Unremarkable. NECK: Supple. LUNGS: Clear. HEART: With a regular rhythm and rate. ABDOMEN: Gravid, vertex, positive heart tones. BACK: Showed bilateral CVA tenderness, right greater than left. PELVIC: Showed the cervix to be long, thick and closed. EXTREMITIES: Showed no deep calf tenderness. ADMISSION LABORATORY VALUES: Showed an H and H of 9.1 and 27.9 and a white count of 13,000. HOSPITAL COURSE: The patient was clinically felt to have pyelonephritis. The Emergency Room gave her a dose of vancomycin and started her on antibiotics. Upon admission, obstetrics changed her antibiotics to cefepime 1 gram q. 8 hours. The patient spiked to 38.1 on her first hospital day, but then defervesced for the remainder of the hospitalization. The patient's white count returned to normal. The patient's anemia was felt to be secondary to iron deficiency and poor vitamin intake. The patient's culture grew out E. coli pansensitive. She was discharged home on the medications as listed as above. She will follow up for her obstetrical check but as always she has been instructed to call with any questions, problems, or difficulties.
--- NOTE | 2019-04-27 07:15 | Emergency Department Note ---
ED Visit Note Reviewing records revealed that the patient had a pansensitive E. coli UTI. She also was found to have E. coli bacteremia reported yesterday. It appeared that she had been discharged from the OB service yesterday. I contacted Dr. Kang and discussed the case. She is going to have the patient notified and brought into the office for reevaluation. I also recommended increasing the antibiotic from Keflex to Cefdinir in light of the situation has this is now a clear case of pyelonephritis with subsequent bacteremia. I gave my usual and customary discussion regarding this issue. . : UTI (urinary tract infection) Qualifiers: Urinary tract infection type: site unspecified Hematuria presence: without hematuria Qualified Code(s): N39.0 - Urinary tract infection, site not specified
== END 2019-04-26 12:10 | disposition home or self-care (01) | DRG 832 ==
LOC: ED 20:44 → 4N 22:53
DX: O23.03 Infections of kidney in pregnancy, third trimester; N12 Tubulo-interstitial nephritis, not specified as acute or chronic; Z3A.34 34 weeks gestation of pregnancy; Z88.0 Allergy status to penicillin

== ENCOUNTER 2019-06-07 08:06 | Inpatient (IN) ==
[2019-06-07] MEDS ORDERED: OXYTOCIN 30 UNITS/500 ML BAG IV PRN ×3 (08:29→18:03)
--- NOTE | 2019-06-07 08:39 | Labor Progress Brief Note ---
Date of Service June 07, 2019 Subjective Patient arrives for IOL for postdates. She has had minimal symptoms following membrane stripping yesterday. Currently no ctx, LOF, VB. Good FM noted. Assessment & Plan (1) Post-dates , delivered, current hospitalization: IOL to proceed with pitocin and AROM after head better applied. Epidural on request. Present on Admission?: Yes Physical Exam Genitourinary: Manual OB Exam: + cervical dilation 3 cm, + cervical effacement (0) and + station -2 OB Exam Monitor Tracing: + external uterine monitor used and + category I
[2019-06-07 08:53] LABS: Hematocrit (blood only) 28.1 % (37-47); Hemoglobin 8.8 g/dL (12.0-16.0); Mean Corpuscular Volume 73.4 fL (80-100); Mean Platelet Volume 10.4 fL (7.4-10.4); Platelet Count 231 K/uL (130-400); RDW Coefficient of Variation 15.2 % (11.5-14.5); RDW Standard Deviation 40.8 fL (36.4-46.3); Red Blood Count 3.83 M/uL (4.2-5.4); White Blood Count 7.81 K/uL (4.8-10.8)
[2019-06-07 09:08] LABS: Mean Corpuscular Hgb Conc 31.3 g/dL (32-36)
[2019-06-07] MEDS: LACTATED RINGER'S 1,000 ML IV PRN ×2 (09:56→13:48)
--- NOTE | 2019-06-07 10:31 | Anesthesiology Consultation ---
Date of Service June 07, 2019 Assessment & Plan Chart Review Chart Review: Acceptable Risk for Labor Epidural Consults Requested none History Height/Weight Height: 5 ft 11.75 in Weight: 121.744 kg Allergies Allergy/AdvReac Type Severity Reaction Status Date / Time Penicillins Allergy Mild HIVES Verified 04/23/19 23:42 Medications Home Medications Medication Instructions Recorded Confirmed Last Taken PNV cmb#95-ferrous fumarate-FA 1 tab PO DAILY 04/23/19 04/23/19 Unknown [] nitrofurantoin monohyd/m-cryst 100 mg PO HS 30 Days #30 cap 04/26/19 Unknown [Macrobid] Active Medications Generic Name Dose Route Start Last Admin Trade Name Freq PRN Reason Stop Dose Admin Lactated Ringer's 1,000 mls @ 125 mls/hr 06/07/19 08:29 06/07/19 09:56 Lr IV 06/09/19 08:28 125 mls/hr .Q8H PRN Administration L&D Protocol Protocol Oxytocin 30 units in 500 mls @ 1 mls/hr 06/07/19 08:29 06/07/19 09:59 Pitocin IV 06/09/19 08:28 0.06 units/hr .Q24H PRN 1 mls/hr Labor Induction/Augmentation Administration Protocol 0.06 UNITS/HR Past Medical History Medical History Anemia affecting (Acute) Depression with anxiety (Acute) Migraine headache (Acute) Peripheral neuropathy (Acute) Tobacco use affecting , antepartum (Acute) UTI in (Acute) Post-dates , delivered, current hospitalization H/O pyelonephritis (Resolved) Recurrent UTI (Chronic) Past Family History Family History Grandmother (Paternal) Diabetes Uncle Hypertension Grandmother (Maternal) Hypertension Uncle Cancer Aunt Cancer Grandmother (Paternal) Cancer Grandmother (Maternal) Cancer Social History Smoking Status: Former smoker Do You Dip or Chew Tobacco: No Hx Alcohol Use: No Alcohol type: wine Hx Substance Use: No substance use type: does not use Physical Exam Vital Signs Last Vital Signs Temp 36.7 C 06/07/19 08:09 Pulse 73 06/07/19 10:05 BP 144/68 H 06/07/19 10:05 Testing Laboratory Results 06/07/19 08:37
[2019-06-07] MEDS ORDERED: NALBUPHINE HCL INJ 10 MG/ML AMP IV PRN (10:32)
[2019-06-07] MEDS ORDERED: ePHEDrine sulfate 50 MG/ML AMP IV PRN (10:32)
[2019-06-07] MEDS ORDERED: fentaNYL 2MCG/ML ROPIV 1.25MG/ML 100 ML BAG EPI PRN (10:32)
[2019-06-07] MEDS ORDERED: DiphenhydrAMINE HCL 50 MG/ML VIAL IV PRN (10:32)
[2019-06-07] MEDS ORDERED: NALOXONE HCL 1 MG in SODIUM CHLORIDE 0.9% 1000ML 1,000 ML IV PRN (10:32)
[2019-06-07] MEDS ORDERED: NALOXONE HCL 0.4 MG/1 ML VIAL/CARP IV PRN (10:32)
--- NOTE | 2019-06-07 10:34 | Labor Progress Brief Note ---
Date of Service June 07, 2019 Subjective Pitocin only recently started due to difficulty with IV access. Patient not feeling much difference yet. Assessment & Plan (1) Post-dates , delivered, current hospitalization: Planning to request epidural now. Continue pitocin. Present on Admission?: Yes Physical Exam Physical Exam: /-2 AROM for small amt clear fluid. [place] rare ctx FHT Cat 1, though decel noted after AROM that spontaneously resolved back to a Cat 1 pattern. Results & Data Vital Signs (Past 12 Hours) Vital Signs Temp Pulse BP 06/07/19 10:05 73 144/68 H 06/07/19 08:44 72 140/74 06/07/19 08:09 36.7 C
[2019-06-07] MEDS ORDERED: BUPIVACAINE 0.25% 30 ML VIAL ONE (10:35)
[2019-06-07] MEDS ORDERED: ePHEDrine sulfate 50 MG/ML AMP ONE (10:35)
[2019-06-07] MEDS ORDERED: fentaNYL citrate 100 MCG/2 ML VIAL ONE (10:35)
[2019-06-07] MEDS ORDERED: fentaNYL 2MCG/ML ROPIV 1.25MG/ML 100 ML BAG EPI ONE (10:36)
[2019-06-07] MEDS ORDERED: FAMOTIDINE 20 MG TAB PO SCH ×2 (13:05→21:00)
--- NOTE | 2019-06-07 14:36 | Labor Progress Brief Note ---
Date of Service June 07, 2019 Subjective Reason For Note: Routine Evaluation Comfortable with Epidural Assessment & Plan (1) Post-dates , delivered, current hospitalization: Continue current management. Present on Admission?: Yes Physical Exam Genitourinary: Manual OB Exam: + cervical dilation 4 cm, + cervical effacement 70%, + station -2 and + amniotic fluid clear OB Exam Monitor Tracing: + category I Results & Data Vital Signs (Past 12 Hours) Vital Signs Temp Pulse Resp BP Pulse Ox 06/07/19 14:33 57 L 99 06/07/19 14:28 66 99 06/07/19 14:23 59 L 149/73 H 98 06/07/19 14:19 65 88 L 06/07/19 14:18 61 98 06/07/19 14:13 99 H 94 06/07/19 14:09 60 161/77 H 06/07/19 14:08 58 L 98 06/07/19 14:07 73 93 06/07/19 14:03 68 97 06/07/19 13:58 63 98 06/07/19 13:55 60 139/65 06/07/19 13:53 64 98 06/07/19 13:51 36.7 C 20 06/07/19 13:48 65 98 06/07/19 13:43 63 97 06/07/19 13:39 67 148/71 H 06/07/19 13:38 66 98 06/07/19 13:33 98 H 99 06/07/19 13:28 105 H 97 06/07/19 13:27 107 H 92 06/07/19 13:23 69 148/90 H 99 06/07/19 13:18 60 98 06/07/19 13:13 62 98 06/07/19 13:08 61 143/89 H 100 06/07/19 13:03 66 98 06/07/19 12:58 71 100 06/07/19 12:55 66 133/85 06/07/19 12:53 63 99 06/07/19 12:48 68 96 06/07/19 12:43 68 96 06/07/19 12:38 60 124/70 98 06/07/19 12:33 63 98 06/07/19 12:28 67 97 06/07/19 12:23 36.9 C 65 20 126/66 98 06/07/19 12:18 68 97 06/07/19 12:13 66 96 06/07/19 12:08 63 127/62 97 06/07/19 12:03 66 97 06/07/19 11:58 61 98 06/07/19 11:53 72 99 06/07/19 11:52 67 126/60 06/07/19 11:48 67 95 06/07/19 11:47 65 114/60 06/07/19 11:43 70 98 06/07/19 11:42 66 127/60 06/07/19 11:39 72 132/67 06/07/19 11:38 69 100 06/07/19 11:33 71 99 06/07/19 11:32 73 128/60 06/07/19 11:29 75 133/63 06/07/19 11:28 73 98 06/07/19 11:24 82 143/67 H 06/07/19 11:23 81 98 06/07/19 11:18 86 131/74 97 06/07/19 11:13 82 97 06/07/19 11:11 95 H 141/63 H 06/07/19 11:08 83 140/68 98 06/07/19 11:06 100 H 141/68 H 06/07/19 11:04 81 131/61 06/07/19 11:03 82 98 06/07/19 11:02 83 139/69 06/07/19 11:00 84 139/70 06/07/19 10:59 80 137/65 06/07/19 10:58 82 97 06/07/19 10:57 76 148/68 H 06/07/19 10:55 77 163/76 H 06/07/19 10:53 93 H 98 06/07/19 10:52 99 H 166/89 H 06/07/19 10:51 97 H 175/91 H 06/07/19 10:48 94 H 99 06/07/19 10:44 106 H 143/72 H 06/07/19 10:43 102 H 100 06/07/19 10:05 73 144/68 H 06/07/19 08:44 72 140/74 06/07/19 08:09 36.7 C
--- NOTE | 2019-06-07 17:10 | Labor Progress Brief Note ---
Date of Service June 07, 2019 Subjective Reason For Note: Routine Evaluation Comfortable with Epidural Assessment & Plan (1) Post-dates , delivered, current hospitalization: Begin second stage. Present on Admission?: Yes Physical Exam Genitourinary: Manual OB Exam: + cervical dilation 10 cm, + cervical effacement 100%, + station + 1 and + amniotic fluid clear OB Exam Monitor Tracing: + category I Results & Data Vital Signs (Past 12 Hours) Vital Signs Temp Pulse Resp BP Pulse Ox 06/07/19 17:04 89 100 06/07/19 17:03 96 H 90 06/07/19 16:59 85 99 06/07/19 16:54 74 142/76 H 99 06/07/19 16:49 64 99 06/07/19 16:45 82 92 06/07/19 16:44 68 99 06/07/19 16:39 62 100 06/07/19 16:38 65 156/75 H 06/07/19 16:34 66 99 06/07/19 16:29 60 99 06/07/19 16:25 80 94 06/07/19 16:24 62 157/78 H 99 06/07/19 16:19 66 99 06/07/19 16:14 62 99 06/07/19 16:09 67 100 06/07/19 16:08 68 142/68 H 06/07/19 16:04 62 99 06/07/19 15:59 36.8 C 60 20 98 06/07/19 15:54 63 98 06/07/19 15:53 57 L 151/82 H 06/07/19 15:49 58 L 98 06/07/19 15:44 67 99 06/07/19 15:39 56 L 146/75 H 98 06/07/19 15:34 62 98 06/07/19 15:29 56 L 98 06/07/19 15:24 57 L 153/82 H 98 06/07/19 15:19 66 99 06/07/19 15:14 56 L 99 06/07/19 15:09 65 99 06/07/19 15:08 62 145/79 H 89 L 06/07/19 15:03 65 98 06/07/19 14:58 63 98 06/07/19 14:54 63 146/77 H 06/07/19 14:53 57 L 99 06/07/19 14:48 67 98 06/07/19 14:47 61 91 06/07/19 14:43 68 100 06/07/19 14:38 62 143/80 H 98 06/07/19 14:33 57 L 99 06/07/19 14:28 66 99 06/07/19 14:23 59 L 149/73 H 98 06/07/19 14:19 65 88 L 06/07/19 14:18 61 98 06/07/19 14:13 99 H 94 06/07/19 14:09 60 161/77 H 06/07/19 14:08 58 L 98 06/07/19 14:07 73 93 06/07/19 14:03 68 97 06/07/19 13:58 63 98 06/07/19 13:55 60 139/65 06/07/19 13:53 64 98 06/07/19 13:51 36.7 C 20 06/07/19 13:48 65 98 06/07/19 13:43 63 97 06/07/19 13:39 67 148/71 H 06/07/19 13:38 66 98 06/07/19 13:33 98 H 99 06/07/19 13:28 105 H 97 06/07/19 13:27 107 H 92 06/07/19 13:23 69 148/90 H 99 06/07/19 13:18 60 98 06/07/19 13:13 62 98 06/07/19 13:08 61 143/89 H 100 06/07/19 13:03 66 98 06/07/19 12:58 71 100 06/07/19 12:55 66 133/85 06/07/19 12:53 63 99 06/07/19 12:48 68 96 06/07/19 12:43 68 96 06/07/19 12:38 60 124/70 98 06/07/19 12:33 63 98 06/07/19 12:28 67 97 06/07/19 12:23 36.9 C 65 20 126/66 98 06/07/19 12:18 68 97 06/07/19 12:13 66 96 06/07/19 12:08 63 127/62 97 06/07/19 12:03 66 97 06/07/19 11:58 61 98 06/07/19 11:53 72 99 06/07/19 11:52 67 126/60 06/07/19 11:48 67 95 06/07/19 11:47 65 114/60 06/07/19 11:43 70 98 06/07/19 11:42 66 127/60 06/07/19 11:39 72 132/67 06/07/19 11:38 69 100 06/07/19 11:33 71 99 06/07/19 11:32 73 128/60 06/07/19 11:29 75 133/63 06/07/19 11:28 73 98 06/07/19 11:24 82 143/67 H 06/07/19 11:23 81 98 06/07/19 11:18 86 131/74 97 06/07/19 11:13 82 97 06/07/19 11:11 95 H 141/63 H 06/07/19 11:08 83 140/68 98 06/07/19 11:06 100 H 141/68 H 06/07/19 11:04 81 131/61 06/07/19 11:03 82 98 06/07/19 11:02 83 139/69 06/07/19 11:00 84 139/70 06/07/19 10:59 80 137/65 06/07/19 10:58 82 97 06/07/19 10:57 76 148/68 H 06/07/19 10:55 77 163/76 H 06/07/19 10:53 93 H 98 06/07/19 10:52 99 H 166/89 H 06/07/19 10:51 97 H 175/91 H 06/07/19 10:48 94 H 99 06/07/19 10:44 106 H 143/72 H 06/07/19 10:43 102 H 100 06/07/19 10:05 73 144/68 H 06/07/19 08:44 72 140/74 06/07/19 08:09 36.7 C
--- NOTE | 2019-06-07 17:25 | Delivery Summary ---
Vaginal Delivery Summary Date of Service June 07, 2019 Vaginal Delivery Summary PREOPERATIVE DIAGNOSES: 1. Weiss intrauterine at post term gestation. 2. Induction of labor. 3. Group B Streptococcus neg. POSTOPERATIVE DIAGNOSES: 1. Weiss intrauterine at post term gestation. 2. Induction of labor. 3. Group B Streptococcus neg. PROCEDURE: Spontaneous vaginal delivery. SURGEON: Amadna Groves MD. LATRINE CLEANER: None. ESTIMATED BLOOD LOSS: 300 mL. COMPLICATIONS: None. PLACENTA: Spontaneous and intact with a 3-vessel cord. DISPOSITION: Stable to labor and delivery. DESCRIPTION: She pushed well and brought the head to in OA position. The 's head was allowed to deliver with contraction force and no further active pushing, with the perineum protected during this time. The shoulders delivered easily with a maternal pushing effort. The left shoulder was anterior. The shoulders and body delivered without any difficulty, and the infant was placed on the maternal abdomen. It was vigorous and moving all extremities, and making respiratory efforts. The cord was doubly clamped by the MD and then cut by the FOB. The placenta delivered spontaneously and was noted to be intact and with a 3VC. The cervix, vagina and perineum were examined and were found to be without defect requiring repair. The fundus was firm and lochia minimal immediately after delivery.
[2019-06-07] MEDS ORDERED: HYDROCORTISONE ACETATE 25 MG SUPP PR PRN (18:03)
[2019-06-07] MEDS ORDERED: ACETAMINOPHEN 325 MG TAB PO PRN (18:03)
[2019-06-07] MEDS ORDERED: LACTATED RINGER'S 1,000 ML IV SCH (18:03)
[2019-06-07] MEDS ORDERED: OXYCODONE/ACETAMINOPHEN 5mg/325mg TAB PO PRN (18:03)
[2019-06-07] MEDS ORDERED: BENZOCAINE 20% AER SPR 82.5 GM CAN EXT PRN (18:03)
[2019-06-07] MEDS ORDERED: DIPHTHERIA/TETANUS/PERTUSSIS 0.5 ML SYR/VIAL IM ONE (18:03)
[2019-06-07] MEDS ORDERED: SUPERCREAM 0.870% 15 GM JAR EXT PRN (18:03)
--- NOTE | 2019-06-07 19:55 | Anesthesia Procedure Note ---
Date of Service June 07, 2019 Anesthesia Post Epidural Note Vital Signs Vital Signs: Temp Pulse Resp BP Pulse Ox 36.8 C 93 H 20 138/78 97 06/07/19 15:59 06/07/19 19:38 06/07/19 15:59 06/07/19 19:38 06/07/19 17:14 Pain Intensity Bilateral Abdomen: Pain Intensity: 3 Notes Mental Status: alert / awake / arousable Nausea / Vomiting: adequately controlled Pain: adequately controlled Airway Patency, RR, SpO2: stable & adequate BP & HR: stable & adequate Hydration State: stable & adequate Neuraxial Anesthesia: was administered and sensory block is resolving Anesthetic Complications: no major complications apparent and Pt Satisfied with anesthetic care Epidural: Removed without complications and With tip intact
[2019-06-07] MEDS: DOCUSATE SODIUM 100 MG CAP PO SCH (21:41)
[2019-06-08] MEDS: IBUPROFEN 600 MG TAB PO PRN ×2 (03:35→08:27)
--- NOTE | 2019-06-08 05:21 | Obstetrical Progress Note ---
Date of Service <Arnulfo Berrios MD - Last Filed: 06/08/19 07:18> June 08, 2019 Assessment & Plan <Arnulfo Berrios MD - Last Filed: 06/08/19 07:18> (1) Vaginal delivery: [38 y/o s/p vaginal delivery @ 41+0 complicated by AMA, asthma, and anemia] -PPD#1 - GBS negative, Blood Type A+ - Feels well today. Eating well, voiding well, ambulating well. - Pain well controlled. - Routine care - After discharge will have 6 week followup with [facility]. Day #:: 1 Subjective <Arnulfo Berrios MD - Last Filed: 06/08/19 07:18> Ambulation: ambulating normally Voiding: no voiding problems Passing Gas:: Yes Diet Tolerance:: regular diet Lochia:: Moderate (less than a heavy period) Feeding Type:: breast feeding Current Pain Level(1-10): 2 Physical Exam <Arnulfo Berrios MD - Last Filed: 06/08/19 07:18> OB PE General: Alert, oriented. No acute distress. Cardiac: Regular rate and rhythm, no murmurs/rubs/gallops. Respiratory: Clear to auscultation anterior and posteriorly, no wheezes/rales/rhonchi. No increased work of breathing. Symmetrical chest rise. No respiratory distress. Abdomen: Soft, nontender, nondistended. Bowel sounds present. Uterus: Uterine fundus firm, palpable 1 cm below umbilicus. Lower Extremities: No lower extremity edema or swelling. No deep calf pain. Sarai's negative bilaterally. OB ROS Denies fever, chills, sweats Denies shortness of breath, difficulty breathing, chest pain, palpitations, chest pressure. Denies breast pain. Denies dysuria. Denies headache. Results & Data <Arnulfo Berrios MD - Last Filed: 06/08/19 07:18> Vital Signs (Past 12 Hours) Vital Signs Temp Pulse Pulse Resp BP BP 06/08/19 03:39 37.1 C 59 L 20 138/80 06/07/19 23:55 36.8 C 78 18 134/82 06/07/19 20:10 37.0 C 76 20 142/87 H 06/07/19 19:38 93 H 138/78 06/07/19 19:23 88 136/70 06/07/19 19:08 77 136/76 06/07/19 18:53 81 123/65 06/07/19 18:38 83 131/63 06/07/19 18:23 75 126/64 06/07/19 18:18 73 140/63 06/07/19 18:08 179 H 150/71 H 06/07/19 17:53 78 160/74 H 06/07/19 17:38 79 130/93 06/07/19 17:22 78 137/89 <Amandamaren Groves MD - Last Filed: 06/08/19 07:05> Co-Signing Physician Notes I have reviewed the resident's note and examined the patient myself, and agree with the note above.
[2019-06-08 06:49] LABS: Hemoglobin 8.6 g/dL (12.0-16.0); Mean Corpuscular Hgb Conc 30.7 g/dL (32-36); Mean Corpuscular Volume 73.3 fL (80-100); Mean Platelet Volume 10.3 fL (7.4-10.4); Platelet Count 226 K/uL (130-400); RDW Coefficient of Variation 15.3 % (11.5-14.5); RDW Standard Deviation 40.9 fL (36.4-46.3); Red Blood Count 3.82 M/uL (4.2-5.4); White Blood Count 10.46 K/uL (4.8-10.8)
[2019-06-08] MEDS ORDERED: PRENATAL VITAMIN 1 TAB PO SCH (08:00)
[2019-06-08] MEDS: DOCUSATE SODIUM 100 MG CAP PO SCH (08:27)
[2019-06-08] MEDS ORDERED: FERROUS SULFATE 325 MG TAB PO SCH (09:00)
== END 2019-06-08 19:10 | disposition home or self-care (01) | DRG 807 ==
LOC: 4S1 08:06 → 4S2 19:50